=== PATIENT | male | born 1940 | race Caucasian/White ===

== ENCOUNTER 2021-09-19 12:17 | Inpatient (IN) | payer MEDICARE ==
[~2021-09-19] VITALS: Ht 177.8 cm; Wt 66.2 kg
[2021-09-19 12:22] VITALS: BP 92/56
[2021-09-19] MEDS ORDERED: ASPIRIN81 M1 PO (12:47)
[2021-09-19] MEDS ORDERED: LIPITOR10 MG PO (12:47)
[2021-09-19] MEDS ORDERED: IRON325 M1 PO (12:48)
[2021-09-19] MEDS ORDERED: LASIX20 MG PO (12:48)
[2021-09-19] MEDS ORDERED: WARFARIN SODIUM1 MG PO (12:49)
[2021-09-19 12:52] LABS: BASO # 0.1 10*3/uL (0.0-0.1); BASO % 0.7 % (0.0-1.0); EOS % 0.3 % (1.0-4.0); HEMATOCRIT 34.6 % (42.0-52.0); LYMPH # 1.4 10*3/uL (1.3-4.4); LYMPH % 12.2 % (27.0-41.0); MEAN CELL VOLUME 90.8 fl (80.0-94.0); MEAN CORPUSCULAR HGB 28.9 pg (27.0-31.0); MEAN CORPUSCULAR HGB CONC 31.8 g/dl (33.0-37.0); MEAN PLATELET VOLUME 10.1 fl (9.6-12.3); MONO # 0.9 10*3/uL (0.1-1.0); MONO % 7.9 % (3.0-9.0); NEUT # 8.8 10*3/uL (2.3-7.9); NEUT % 78.5 % (47.0-73.0); PLATELET COUNT AUTOMATED 157 10*3/uL (130-400); RED BLOOD COUNT 3.81 10*6/uL (4.50-5.90); RED CELL DISTRI WIDTH 18.6 % (0-14.5); WHITE BLOOD COUNT 11.2 10*3/uL (4.8-10.8)
[2021-09-19 13:04] LABS: ACT PARTIAL THROMBO TIME 38.5 SECONDS (20.0-32.1); INTERNATIONAL NORM RATIO 2.5 (2.0-3.5)
[2021-09-19 13:10] LABS: ALBUMIN 2.4 gm/dl (3.1-4.5); CREATININE 2.02 mg/dL (0.70-1.30); POTASSIUM 3.7 mmol/L (3.5-5.1); TOTAL PROTEIN 6.5 gm/dL (6.4-8.2)
[2021-09-19 15:05] LABS: BILIRUBIN 1+ (Negative); BLOOD Negative (Negative); CLARITY Clear (Clear); COLOR Orange (Yellow); GLUCOSE Negative (Negative); KETONE Negative (Negative); LEUKO ESTERASE 1+ (Negative); NITRITE Negative (Negative); SPECIFIC GRAVITY 1.015 (1.001-1.030)
[2021-09-19 15:19] LABS: BACTERIA 3+; EPITHELIAL CELLS 0-2
[2021-09-19 18:52] VITALS: BP 95/55
[2021-09-20 02:00] VITALS: BP 106/50
[2021-09-20 07:29] LABS: BASO % 0.1 % (0.0-1.0); LYMPH # 1.2 10*3/uL (1.3-4.4); LYMPH % 14.5 % (27.0-41.0); MEAN CELL VOLUME 90.5 fl (80.0-94.0); MEAN CORPUSCULAR HGB 28.9 pg (27.0-31.0); MEAN CORPUSCULAR HGB CONC 31.9 g/dl (33.0-37.0); MEAN PLATELET VOLUME 10.6 fl (9.6-12.3); MONO # 0.2 10*3/uL (0.1-1.0); MONO % 2.4 % (3.0-9.0); NEUT % 82.6 % (47.0-73.0); PLATELET COUNT AUTOMATED 182 10*3/uL (130-400); RED BLOOD COUNT 3.98 10*6/uL (4.50-5.90); RED CELL DISTRI WIDTH 18.2 % (0-14.5); WHITE BLOOD COUNT 8.5 10*3/uL (4.8-10.8)
[2021-09-20 07:45] LABS: INTERNATIONAL NORM RATIO 1.9 (2.0-3.5)
[2021-09-20 07:47] LABS: ALBUMIN 2.1 gm/dl (3.1-4.5)
[2021-09-20 07:56] LABS: CREATININE 1.72 mg/dL (0.70-1.30); FREE T4 1.37 ng/dl (0.76-1.46); TOTAL PROTEIN 6.2 gm/dL (6.4-8.2)
[2021-09-20 08:00] VITALS: BP 93/71
[2021-09-20 08:29] LABS: POTASSIUM 4.7 mmol/L (3.5-5.1); THYROID STIM HORMONE (HS) 3.21 uIU/ml (0.358-4.75)
[2021-09-20 08:43] LABS: FERRITIN 739.8 ng/mL (22.0-322.0); VITAMIN D, 25-HYDROXY 29.8 ng/mL (30-100)
[2021-09-20 12:00] VITALS: BP 120/102
[2021-09-20 16:00] VITALS: BP 100/60
[2021-09-20 20:00] VITALS: BP 106/60
[2021-09-21] VITALS: BP 120/65
[2021-09-21 07:02] LABS: BASO % 0.1 % (0.0-1.0); HEMATOCRIT 33.5 % (42.0-52.0); LYMPH # 1.5 10*3/uL (1.3-4.4); LYMPH % 12.7 % (27.0-41.0); MEAN CELL VOLUME 89.8 fl (80.0-94.0); MEAN CORPUSCULAR HGB CONC 32.2 g/dl (33.0-37.0); MEAN PLATELET VOLUME 10.4 fl (9.6-12.3); MONO # 0.5 10*3/uL (0.1-1.0); MONO % 4.2 % (3.0-9.0); NEUT # 9.5 10*3/uL (2.3-7.9); NEUT % 82.4 % (47.0-73.0); PLATELET COUNT AUTOMATED 195 10*3/uL (130-400); RED BLOOD COUNT 3.73 10*6/uL (4.50-5.90); RED CELL DISTRI WIDTH 18.7 % (0-14.5); WHITE BLOOD COUNT 11.5 10*3/uL (4.8-10.8)
[2021-09-21 07:16] LABS: INTERNATIONAL NORM RATIO 2.5 (2.0-3.5)
[2021-09-21 07:23] LABS: ALBUMIN 2.4 gm/dl (3.1-4.5); CREATININE 2.16 mg/dL (0.70-1.30); POTASSIUM 4.4 mmol/L (3.5-5.1); TOTAL PROTEIN 6.4 gm/dL (6.4-8.2)
[2021-09-21 08:00] VITALS: BP 96/50
[2021-09-21 12:00] VITALS: BP 99/58
[2021-09-21 16:00] VITALS: BP 105/62
[2021-09-21 20:00] VITALS: BP 103/61
[2021-09-22] VITALS: BP 110/63
[2021-09-22 07:26] LABS: HEMATOCRIT 33.4 % (42.0-52.0); LYMPH # 1.4 10*3/uL (1.3-4.4); LYMPH % 14.6 % (27.0-41.0); MEAN CELL VOLUME 90.3 fl (80.0-94.0); MEAN CORPUSCULAR HGB 28.6 pg (27.0-31.0); MEAN CORPUSCULAR HGB CONC 31.7 g/dl (33.0-37.0); MEAN PLATELET VOLUME 10.7 fl (9.6-12.3); MONO # 0.3 10*3/uL (0.1-1.0); MONO % 3.4 % (3.0-9.0); NEUT # 7.7 10*3/uL (2.3-7.9); NEUT % 81.5 % (47.0-73.0); PLATELET COUNT AUTOMATED 148 10*3/uL (130-400); RED CELL DISTRI WIDTH 19.1 % (0-14.5); WHITE BLOOD COUNT 9.4 10*3/uL (4.8-10.8)
[2021-09-22 07:44] LABS: ALBUMIN 2.5 gm/dl (3.1-4.5); CREATININE 2.19 mg/dL (0.70-1.30); POTASSIUM 4.4 mmol/L (3.5-5.1); TOTAL PROTEIN 6.8 gm/dL (6.4-8.2)
[2021-09-22 08:00] VITALS: BP 101/63
[2021-09-22 08:00] LABS: INTERNATIONAL NORM RATIO 2.4 (2.0-3.5)
[2021-09-22 12:00] VITALS: BP 109/64
[2021-09-22 15:01] VITALS: BP 113/59
[2021-09-22 20:00] VITALS: BP 113/71
[2021-09-23] VITALS: BP 103/61
[2021-09-23 07:16] LABS: INTERNATIONAL NORM RATIO 2.8 (2.0-3.5)
[2021-09-23 08:00] VITALS: BP 100/65
[2021-09-23 12:00] VITALS: BP 104/67
[2021-09-23 16:00] VITALS: BP 103/61
[2021-09-23 20:00] VITALS: BP 103/60
[2021-09-24] VITALS: BP 104/61
[2021-09-24 06:25] LABS: HEMATOCRIT 31.7 % (42.0-52.0); LYMPH % 13.1 % (27.0-41.0); MEAN CELL VOLUME 89.8 fl (80.0-94.0); MEAN CORPUSCULAR HGB 29.2 pg (27.0-31.0); MEAN CORPUSCULAR HGB CONC 32.5 g/dl (33.0-37.0); MEAN PLATELET VOLUME 11.3 fl (9.6-12.3); MONO # 0.5 10*3/uL (0.1-1.0); MONO % 6.5 % (3.0-9.0); NEUT # 6.1 10*3/uL (2.3-7.9); NEUT % 79.5 % (47.0-73.0); PLATELET COUNT AUTOMATED 125 10*3/uL (130-400); RED BLOOD COUNT 3.53 10*6/uL (4.50-5.90); RED CELL DISTRI WIDTH 18.8 % (0-14.5); WHITE BLOOD COUNT 7.7 10*3/uL (4.8-10.8)
[2021-09-24 06:30] LABS: CREATININE 2.3 mg/dL (0.70-1.30); POTASSIUM 4.9 mmol/L (3.5-5.1)
[2021-09-24 08:00] VITALS: BP 112/58
[2021-09-24 12:00] VITALS: BP 99/63
[2021-09-24 16:00] VITALS: BP 97/59
[2021-09-24 20:00] VITALS: BP 108/65
[2021-09-25] VITALS: BP 114/66
[2021-09-25 06:59] LABS: BASO % 0.1 % (0.0-1.0); HEMATOCRIT 32.9 % (42.0-52.0); LYMPH # 1.3 10*3/uL (1.3-4.4); LYMPH % 13.3 % (27.0-41.0); MEAN CELL VOLUME 90.1 fl (80.0-94.0); MEAN CORPUSCULAR HGB CONC 32.2 g/dl (33.0-37.0); MEAN PLATELET VOLUME 11.4 fl (9.6-12.3); MONO # 0.6 10*3/uL (0.1-1.0); MONO % 5.7 % (3.0-9.0); NEUT # 7.9 10*3/uL (2.3-7.9); NEUT % 80.2 % (47.0-73.0); NUCLEATED RED BLOOD CELL 0.4 % (0.0-0.0); PLATELET COUNT AUTOMATED 132 10*3/uL (130-400); RED BLOOD COUNT 3.65 10*6/uL (4.50-5.90); RED CELL DISTRI WIDTH 18.8 % (0-14.5); WHITE BLOOD COUNT 9.8 10*3/uL (4.8-10.8)
[2021-09-25 07:15] LABS: CREATININE 2.28 mg/dL (0.70-1.30); POTASSIUM 4.9 mmol/L (3.5-5.1)
[2021-09-25 08:00] VITALS: BP 109/69
[2021-09-25 12:00] VITALS: BP 99/62
[2021-09-25 16:00] VITALS: BP 100/61
[2021-09-25 20:00] VITALS: BP 105/63
[2021-09-26] VITALS: BP 111/66
[2021-09-26 06:10] LABS: BASO % 0.1 % (0.0-1.0); HEMATOCRIT 33.9 % (42.0-52.0); LYMPH # 1.2 10*3/uL (1.3-4.4); LYMPH % 13.1 % (27.0-41.0); MEAN CELL VOLUME 89.7 fl (80.0-94.0); MEAN CORPUSCULAR HGB 28.3 pg (27.0-31.0); MEAN CORPUSCULAR HGB CONC 31.6 g/dl (33.0-37.0); MEAN PLATELET VOLUME 11.2 fl (9.6-12.3); MONO # 0.5 10*3/uL (0.1-1.0); MONO % 5.3 % (3.0-9.0); NEUT # 7.5 10*3/uL (2.3-7.9); NEUT % 80.9 % (47.0-73.0); NUCLEATED RED BLOOD CELL 0.1 10*3/uL (0.0-0.0); NUCLEATED RED BLOOD CELL 0.9 % (0.0-0.0); PLATELET COUNT AUTOMATED 118 10*3/uL (130-400); RED BLOOD COUNT 3.78 10*6/uL (4.50-5.90); RED CELL DISTRI WIDTH 18.9 % (0-14.5); WHITE BLOOD COUNT 9.3 10*3/uL (4.8-10.8)
[2021-09-26 06:23] LABS: CREATININE 2.45 mg/dL (0.70-1.30); POTASSIUM 5.1 mmol/L (3.5-5.1)
[2021-09-26 06:31] LABS: INTERNATIONAL NORM RATIO 3.1 (2.0-3.5)
[2021-09-26 09:09] VITALS: BP 109/73
[2021-09-26 11:36] VITALS: BP 106/66
[2021-09-26 16:00] VITALS: BP 107/59
[2021-09-26 20:00] VITALS: BP 104/56
[2021-09-27] VITALS: BP 108/59
[2021-09-27 06:10] LABS: HEMATOCRIT 34.3 % (42.0-52.0); MEAN CELL VOLUME 90.3 fl (80.0-94.0); MEAN CORPUSCULAR HGB 29.2 pg (27.0-31.0); MEAN CORPUSCULAR HGB CONC 32.4 g/dl (33.0-37.0); MEAN PLATELET VOLUME 11.4 fl (9.6-12.3); NUCLEATED RED BLOOD CELL 0.3 10*3/uL (0.0-0.0); NUCLEATED RED BLOOD CELL 2.1 % (0.0-0.0); PLATELET COUNT AUTOMATED 136 10*3/uL (130-400); WHITE BLOOD COUNT 12.1 10*3/uL (4.8-10.8)
[2021-09-27 06:27] LABS: POTASSIUM 4.9 mmol/L (3.5-5.1)
[2021-09-27 06:29] LABS: ALBUMIN 2.1 gm/dl (3.1-4.5); CREATININE 2.37 mg/dL (0.70-1.30)
[2021-09-27 08:00] VITALS: BP 115/62
[2021-09-27 08:13] LABS: PLATELET SUFFICIENCY NORMAL (NORMAL); POLYCHROMASIA SLIGHT; TOTAL CELLS COUNTED 100 #CELLS
[2021-09-27 12:00] VITALS: BP 110/60
[2021-09-27] MEDS ORDERED: METOPROLOL SUCC25 M2 PO (12:39)
[2021-09-27] MEDS ORDERED: HYDROCODONE-AC1 EAC1 PO ×3 (12:39→14:11)
[2021-09-27] MEDS ORDERED: IMDUR SA30 MG PO (12:39)
[2021-09-27] MEDS ORDERED: FUROSEMIDE40 MG PO (12:39)
== END 2021-09-27 15:06 | DRG 177 ==
LOC: ED 12:17 → EDHOLD 13:43 → 4E 13:43
PROVIDERS: Hospitalist; Physician Assistant; Registered Nurse; ADMIT Family Medicine; ATTEND Family Medicine
PROC: XW033E5 Introduction of Remdesivir Anti-infective into Peripheral Vein, Percutaneous Approach, New Technology Group 5 (ICD-10-PCS; principal; 2021-09-20)
PROC: BD1BYZZ Fluoroscopy of Mouth/Oropharynx using Other Contrast (ICD-10-PCS; 2021-09-20)
DX: J15.6 Pneumonia due to other Gram-negative bacteria (principal); J96.01 Acute respiratory failure with hypoxia; G93.41 Metabolic encephalopathy; N17.0 Acute kidney failure with tubular necrosis; E43 Unspecified severe protein-calorie malnutrition; I50.23 Acute on chronic systolic (congestive) heart failure; E87.2 Acidosis; I48.11 Longstanding persistent atrial fibrillation; J91.8 Pleural effusion in other conditions classified elsewhere; Z66 Do not resuscitate; Z51.5 Encounter for palliative care; Z20.822 Contact with and (suspected) exposure to COVID-19; D50.9 Iron deficiency anemia, unspecified; E78.2 Mixed hyperlipidemia; M1A.9XX0 Chronic gout, unspecified, without tophus (tophi); N18.32 Chronic kidney disease, stage 3b; I25.10 Atherosclerotic heart disease of native coronary artery without angina pectoris; E80.6 Other disorders of bilirubin metabolism; E87.5 Hyperkalemia; Z82.3 Family history of stroke; Z82.49 Family history of ischemic heart disease and other diseases of the circulatory system; Z79.2 Long term (current) use of antibiotics; Z79.899 Other long term (current) drug therapy; Z68.20 Body mass index [BMI] 20.0-20.9, adult